=== PATIENT | female | born 1990 | race African-American/Black ===

== ENCOUNTER 2022-12-21 09:28 | Observation (INO) | payer MEDICAID ==
[~2022-12-21] VITALS: Ht 165.1 cm; Wt 55.8 kg
[2022-12-21 10:12] LABS: CLARITY URINE CLEAR (CLEAR); COLOR URINE YELLOW (YELLOW); KETONES URINE NEGATIVE (NEGATIVE); LEUKOCYTE ESTERASE URINE NEGATIVE (NEGATIVE); NITRITE URINE NEGATIVE (NEGATIVE); OCCULT BLOOD URINE NEGATIVE (NEGATIVE); PH URINE 7.5 (4.5-8.0); PROTEIN URINE NEGATIVE (NEGATIVE); UROBILINOGEN URINE 0.2 E.U./dL (0.2-1.0)
== END 2022-12-21 12:45 | disposition home or self-care (01) ==
LOC: 8 EST LDRP 09:28
PROVIDERS: ADMIT Specialist; ATTEND Specialist
DX: O62.9 Abnormality of forces of labor, unspecified (principal); Z3A.23 23 weeks gestation of pregnancy
CPT/HCPCS: 59025; 76805; 81003; G0378; 99281; G0379